=== PATIENT | female | born 1940 | race Caucasian/White ===

== ENCOUNTER → 2016-05-26 | Outpatient (CLI) | payer MEDICARE, BC ==
[~2016-05-26] MED LIST: BENAZEPRIL; CELLCEPT 250MG250 MG; DEMADEX5 MG PO; EVISTA 60MG60 MG/TAB PO; FOLIC ACID 11 MG/TA1 PO; FUROSEMIDE; IBU600 MG PO; LEVOTHYROXIN0.025 MG PO; LEXAPRO 10MG10 MG PO; LIQUIFILM TEARS15 ML OP; METHOTREXATE25 MG/M1 IJ; NORVASC 5MG5 MG/TAB PO; PLAQUENIL; PLAQUENIL 200M200 MG PO; PROAIR HFA0.09 MG/AC IH; ROXICODONE 55 MG/TAB PO; SYNTHROID0.075 MG/T PO; TYLENOL 500MG500 MG PO
== END ==
LOC: COL.PUL 09:43
DX: R06.02 Shortness of breath (principal)

== ENCOUNTER → 2017-04-07 | Outpatient (CLI) | payer MEDICARE, BC | LOC: MC.RAD 13:55 | DX: Z12.31 Encounter for screening mammogram for malignant neoplasm of breast (principal) ==

== ENCOUNTER 2017-04-14 16:15 | Outpatient (RCR) | payer MEDICARE, BC | END 2017-04-16 16:48 | disposition home or self-care (01) | LOC: WSPT 16:15 | DX: G72.9 Myopathy, unspecified (principal); Z88.8 Allergy status to other drugs, medicaments and biological substances; Z91.040 Latex allergy status | CPT/HCPCS: G8978-GP; G8979-GP; G8980-GP ==

== ENCOUNTER → 2017-07-01 | Outpatient (CLI) | payer MEDICARE, BC | LOC: COL.LAB 16:04 | DX: Z01.89 Encounter for other specified special examinations (principal) ==

== ENCOUNTER → 2017-07-04 | Outpatient (CLI) | payer MEDICARE, BC | LOC: COL.LAB 11:07 | DX: R05 Cough (principal) ==

== ENCOUNTER → 2018-05-14 | Outpatient (CLI) | payer MEDICARE, BC | LOC: MC.RAD 05-03 14:40 | DX: Z12.31 Encounter for screening mammogram for malignant neoplasm of breast (principal) ==

== ENCOUNTER → 2018-11-12 | Outpatient (CLI) | payer MEDICARE, BC | LOC: COL.VAS 10:43 | DX: R06.02 Shortness of breath (principal) ==

== ENCOUNTER → 2019-07-01 | Outpatient (CLI) | payer MEDICARE, BC | LOC: MC.RAD 11:15 | DX: Z12.31 Encounter for screening mammogram for malignant neoplasm of breast (principal) ==

== ENCOUNTER → 2020-07-23 | Outpatient (CLI) | payer MEDICARE, BC ==
[~2020-07-23] MED LIST changes: +ANTIVERT 25MG25 MG PO; +ASPIRIN E.C. 8181 MG PO; +BETAPACE 80MG80 MG PO; +CELLCEPT 5500 MG/TAB PO; +CILOXAN .3% EY2.5 ML OP; +LEXAPRO20 MG PO; +LYRICA 50MG CAP50 MG PO; +PEPCID 20MG TAB20 MG PO; +SINGULAIR 110 MG/TAB PO; +SYNTHROID0.088 MG/T PO; +ULTRAM 50MG TAB50 MG PO; +ZOFRAN 4MG T4 MG/TAB PO
== END ==
LOC: MC.RAD 10:15
DX: Z12.31 Encounter for screening mammogram for malignant neoplasm of breast (principal)

== ENCOUNTER 2020-12-25 08:38 | Emergency (ER) | payer MEDICARE, BC ==
[~2020-12-25] VITALS: Ht 172.7 cm; Wt 75.5 kg
[~2020-12-25 08:38] MED LIST changes: -ANTIVERT 25MG25 MG PO; -ASPIRIN E.C. 8181 MG PO; -BETAPACE 80MG80 MG PO; -CELLCEPT 5500 MG/TAB PO; -CILOXAN .3% EY2.5 ML OP; -LEXAPRO20 MG PO; -LYRICA 50MG CAP50 MG PO; -PEPCID 20MG TAB20 MG PO; -SINGULAIR 110 MG/TAB PO; -SYNTHROID0.088 MG/T PO; -ULTRAM 50MG TAB50 MG PO; -ZOFRAN 4MG T4 MG/TAB PO
[2020-12-25 08:41] VITALS: TEMP 101.1
[2020-12-25 09:25] LABS: BASO % 0.3 % (0.0-2.0); EOS # 0.1 (0.0-0.7); EOS % 1.1 % (0-4.0); GRAN # 7.1 (1.4-6.5); GRAN % 76.7 % (42.2-75.2); HEMATOCRIT 38.4 % (37.0-47.0); LYMPH # 1.2 (1.2-3.4); LYMPH % 13.4 % (20.0-51.0); MEAN CELL VOLUME 86 fl (80.0-100.0); MEAN CORPUSCULAR HEMOGLOBIN 27 pg (27.0-31.0); MEAN CORPUSCULAR HGB CONC 31 g/dl (33.0-37.0); MEAN PLATELET VOLUME 10.4 fl (7.4-10.4); MONO # 0.8 (0.1-0.6); MONO % 8.1 % (1.7-9.3); PLATELET COUNT 243 K/mm3 (130-400); RED BLOOD COUNT 4.48 M/mm3 (4.10-5.30); REDCELL DISTRIBUTION WIDTH-CV 14.8 % (11.5-14.5)
[2020-12-25 09:29] LABS: COLLECTION METHOD CATHETER
[2020-12-25 09:31] LABS: ALANINE AMINOTRANSFERASE 16 U/L (4-34); ALBUMIN 3.6 gm/dL (3.5-5.0); ALKALINE PHOSPHATASE 88 U/L (50-136); ANION GAP 8 mmol/L (7-16); AST,SGOT 38 U/L (15-37); BILIRUBIN,TOTAL 0.6 mg/dL (0.0-1.0); BLOOD UREA NITROGEN 12 mg/dL (7-17); CALCIUM 8.8 mg/dL (8.4-10.2); CARBON DIOXIDE 27 mmol/L (22-30); CHLORIDE 104 mmol/L (98-107); CREATININE, serum 0.91 (0.52-1.25); GLUCOSE 104 mg/dL (74-106); POTASSIUM 3.4 mmol/L (3.4-5.0); SODIUM 139 mmol/L (137-145); TOTAL PROTEIN 7.1 gm/dL (6.4-8.2)
[2020-12-25 09:32] LABS: ALCOHOL(ethanol),MEDICAL < 10 mg/dL
[2020-12-25 09:35] LABS: MUCOUS Present /lpf; PH 5 (5-8); SQUAMOUS EPITHELIAL None Seen /hpf; URINE APPEARANCE Hazy; URINE BACTERIA None Seen /hpf; URINE BILIRUBIN Negative (NEGATIVE); URINE BLOOD Negative (NEGATIVE); URINE COLOR Yellow; URINE GLUCOSE Negative (NEGATIVE); URINE KETONE Negative (NEGATIVE); URINE LEUKOCYTE ESTERASE Negative (NEGATIVE); URINE NITRATE Negative (NEGATIVE); URINE PROTEIN(semi-quant) 1+ (NEGATIVE); URINE RBC 0-2 /hpf; URINE UROBILINOGEN Negative (NEGATIVE)
[2020-12-25 09:45] LABS: TRICYCLIC ANTIDEPRESS URINE NEGATIVE
--- NOTE | 2020-12-25 11:53 | NUR ---
general worker met with patient to discuss home health. Patient lives alone and fell during the night. Patient has been treated in the emergency room and will have a friend drive her home today. Worker provided patient with the medicare.[employer] share information sheet and patient chose [facility]. Worker contacted Lexi with Dr Falk's office and arranged for them to [facility]e [facility]. Worker faxed [facility] home health clinical information from patient's emergency room visit. Worker contacted patient's son, Sonu Garcia [phone] and advised of the above information.
[2020-12-25 12:20] VITALS: BP 150/64; PULSE 80
== END 2020-12-25 12:22 | disposition home or self-care (01) ==
LOC: COL.ER 08:38
PROVIDERS: Personal Emergency Response Attendant
DX: S01.81XA Laceration without foreign body of other part of head, initial encounter (principal); I10 Essential (primary) hypertension; E03.9 Hypothyroidism, unspecified; Z79.890 Hormone replacement therapy; Z79.899 Other long term (current) drug therapy; W19.XXXA Unspecified fall, initial encounter; Y92.009 Unspecified place in unspecified non-institutional (private) residence as the place of occurrence of the external cause
CPT/HCPCS: J7030

== ENCOUNTER 2020-12-26 21:58 | Emergency (ER) | payer MEDICARE, BC ==
[~2020-12-26] VITALS: Ht 172.7 cm; Wt 77.3 kg
[2020-12-26 21:58] VITALS: TEMP 98.6
[2020-12-26 22:52] LABS: BASO % 0.3 % (0.0-2.0); EOS # 0.4 (0.0-0.7); EOS % 4.4 % (0-4.0); GRAN # 6.8 (1.4-6.5); GRAN % 71.7 % (42.2-75.2); HEMOGLOBIN 11.7 g/dl (12.5-16.0); LYMPH # 1.6 (1.2-3.4); LYMPH % 16.5 % (20.0-51.0); MEAN CELL VOLUME 88 fl (80.0-100.0); MEAN CORPUSCULAR HEMOGLOBIN 27 pg (27.0-31.0); MEAN CORPUSCULAR HGB CONC 31 g/dl (33.0-37.0); MEAN PLATELET VOLUME 10.6 fl (7.4-10.4); MONO # 0.6 (0.1-0.6); MONO % 6.6 % (1.7-9.3); PLATELET COUNT 274 K/mm3 (130-400); RED BLOOD COUNT 4.31 M/mm3 (4.10-5.30); REDCELL DISTRIBUTION WIDTH-CV 14.7 % (11.5-14.5)
[2020-12-26 23:00] LABS: ALBUMIN 3.5 gm/dL (3.5-5.0); BILIRUBIN,TOTAL 0.4 mg/dL (0.0-1.0); CALCIUM 8.9 mg/dL (8.4-10.2); CREATININE, serum 1.04 (0.52-1.25); POTASSIUM 3.2 mmol/L (3.4-5.0); TOTAL PROTEIN 7.3 gm/dL (6.4-8.2)
[2020-12-26 23:12] LABS: TROPONIN-I 0.027 ng/mL (0.000-0.035)
[2020-12-27 00:20] VITALS: BP 142/73; PULSE 81
== END 2020-12-27 00:20 | disposition home or self-care (01) ==
LOC: COL.ER 21:58
PROVIDERS: Nurse Practitioner Primary Care
DX: S06.0X9A Concussion with loss of consciousness of unspecified duration, initial encounter (principal); S01.01XA Laceration without foreign body of scalp, initial encounter; E87.6 Hypokalemia; W19.XXXA Unspecified fall, initial encounter; Y92.009 Unspecified place in unspecified non-institutional (private) residence as the place of occurrence of the external cause

== ENCOUNTER 2020-12-29 19:29 | Inpatient (IN) | payer MEDICARE, BC ==
[~2020-12-29] VITALS: Ht 172.7 cm; Wt 77.3 kg
[2020-12-29 20:20] LABS: BASO % 0.3 % (0.0-2.0); EOS # 0.3 (0.0-0.7); EOS % 2.6 % (0-4.0); GRAN # 8.2 (1.4-6.5); GRAN % 77.9 % (42.2-75.2); LYMPH # 1.3 (1.2-3.4); LYMPH % 12.5 % (20.0-51.0); MEAN CORPUSCULAR HEMOGLOBIN 27 pg (27.0-31.0); MEAN CORPUSCULAR HGB CONC 33 g/dl (33.0-37.0); MEAN PLATELET VOLUME 10.1 fl (7.4-10.4); MONO # 0.6 (0.1-0.6); PLATELET COUNT 278 K/mm3 (130-400); RED BLOOD COUNT 4.45 M/mm3 (4.10-5.30); REDCELL DISTRIBUTION WIDTH-CV 14.9 % (11.5-14.5)
[2020-12-29 20:23] LABS: HEMATOCRIT 36.8 % (37.0-47.0); MEAN CELL VOLUME 83 fl (80.0-100.0)
[2020-12-29 20:32] LABS: ALBUMIN 3.4 gm/dL (3.5-5.0); BILIRUBIN,TOTAL 0.6 mg/dL (0.0-1.0); CALCIUM 8.5 mg/dL (8.4-10.2); CREATININE, serum 0.75 (0.52-1.25); TOTAL PROTEIN 6.7 gm/dL (6.4-8.2)
[2020-12-29 20:39] LABS: POTASSIUM 2.9 mmol/L (3.4-5.0)
--- NOTE | 2020-12-29 23:28 | NUR ---
Patient just came to the unit, she is alert and oriented x 4, VSS, she feels uncomfortable with her right side, So she prefers to be lying on her left side.
[2020-12-30] VITALS (8 sets, daily range): BP systolic 142–158; BP diastolic 56–105; PULSE 74–97; TEMP 97.6–98.8
--- NOTE | 2020-12-30 07:08 | NUR ---
Patient has been resting intermitently. She has been taken the K supplement. She has been feeling cold all night. Some warm blankets provided. Just right now she started with itching in her arms. Rednees in the inner arms bilaterally present. Shift report given to day nurse.
[2020-12-30 07:40] LABS: BASO % 0.3 % (0.0-2.0); EOS # 0.2 (0.0-0.7); EOS % 2.3 % (0-4.0); GRAN % 77.9 % (42.2-75.2); HEMOGLOBIN 11.5 g/dl (12.5-16.0); LYMPH # 1.3 (1.2-3.4); LYMPH % 13.1 % (20.0-51.0); MEAN CELL VOLUME 83 fl (80.0-100.0); MEAN CORPUSCULAR HEMOGLOBIN 27 pg (27.0-31.0); MEAN CORPUSCULAR HGB CONC 32 g/dl (33.0-37.0); MEAN PLATELET VOLUME 10.9 fl (7.4-10.4); MONO # 0.6 (0.1-0.6); MONO % 5.9 % (1.7-9.3); PLATELET COUNT 263 K/mm3 (130-400); RED BLOOD COUNT 4.27 M/mm3 (4.10-5.30); REDCELL DISTRIBUTION WIDTH-CV 15.1 % (11.5-14.5)
[2020-12-30 07:41] LABS: HEMATOCRIT 35.6 % (37.0-47.0)
[2020-12-30 07:47] LABS: CALCIUM 8.3 mg/dL (8.4-10.2); CREATININE, serum 0.73 (0.52-1.25); POTASSIUM 3.6 mmol/L (3.4-5.0)
[2020-12-30 09:47] LABS: COLLECTION METHOD CLEAN CATCH
[2020-12-30 10:00] LABS: MUCOUS Present /lpf; PH 6 (5-8); SQUAMOUS EPITHELIAL 0-2 /hpf; URINE APPEARANCE Clear; URINE BACTERIA None Seen /hpf; URINE BILIRUBIN Negative (NEGATIVE); URINE BLOOD 1+ (NEGATIVE); URINE COLOR Yellow; URINE GLUCOSE Negative (NEGATIVE); URINE KETONE Negative (NEGATIVE); URINE LEUKOCYTE ESTERASE 1+ (NEGATIVE); URINE NITRATE Negative (NEGATIVE); URINE PROTEIN(semi-quant) Negative (NEGATIVE); URINE RBC 0-2 /hpf; URINE UROBILINOGEN Negative (NEGATIVE)
--- NOTE | 2020-12-30 10:01 | NUR ---
SHIFT ASSESSMENT PREFORMED. SCHEDULED MEDICATION GIVEN. IV FLUIDS DC'D. BILATERAL UPPER ARM REDNESS NOTED. PATIENT DENIES ANY PAIN, DISCOMFORT, SOA, OR FURTHER NEEDS AT THIS TIME. CALL LIGHT IN REACH. FALL PRECAUTIONS IN PLACE.
--- NOTE | 2020-12-30 10:09 | NUR ---
PATIENT A&O X4
[2020-12-30] MEDS ORDERED: LYRICA 50MG CAP50 MG PO (11:29)
[2020-12-30] MEDS ORDERED: PEPCID 20MG TAB20 MG PO (11:30)
[2020-12-30] MEDS ORDERED: ANTIVERT 25MG25 MG PO (11:30)
[2020-12-30] MEDS ORDERED: SYNTHROID0.088 MG/T PO (11:30)
[2020-12-30] MEDS ORDERED: ULTRAM 50MG TAB50 MG PO (11:30)
[2020-12-30] MEDS ORDERED: SINGULAIR 110 MG/TAB PO (11:31)
[2020-12-30] MEDS ORDERED: ZOFRAN 4MG T4 MG/TAB PO (11:31)
[2020-12-30] MEDS ORDERED: LEXAPRO20 MG PO (11:31)
[2020-12-30] MEDS ORDERED: CELLCEPT 5500 MG/TAB PO ×2 (11:32)
--- NOTE | 2020-12-30 13:42 | NUR ---
Plan Patient reports that she would like to go home but is open to the suggestion of what the doctoróscar jin is best. Patient has [facility] Home health that is to start on Thursday Morning. Patient reports that she is open to IPR but does not know how she fell. Patient reports that she has a walker but does not use it often. Patient reports that her PCP is Dr. Falk and seend recently. Patient reports that she has a Son Bolivar out in [place] who is an city attorney but does not have any POA PPW. Patient reports that she obtains medications from [facility] without any concerns. Patient does not appear to be totally convinced on her statues of care. Educated patient on safety at home and services offered to her through case management. We will follow for the safest DC plan.
--- NOTE | 2020-12-30 17:39 | NUR ---
PATIENT HAS HAD AN OK. VSS. PATIENT DENIES ANY PAIN, DISCOMFORT, SOA, OR FURTHER NEEDS AT THIS TIME. CALL LIGHT IN REACH. FALL PRECAUTIONS IN PLACE.
--- NOTE | 2020-12-30 21:11 | NUR ---
Shift assessment completed. Patient A/Ox3. Patient denies any pain or discomfort. Denies SOB, N/V, headache, or dizziness. Patient reports feeling very cold here. Warm blanket provided. Non-productive dry cough noted. Assisted patient to the bathroom to void. Patient ambulates with a walker. 1 person assist needed for transfer and ambulation. Right AC IV site C/D/I. Scheduled meds given per MAR. Call light in reach. Bed alarms on. Fall precuations maintained.
[2020-12-31] VITALS (7 sets, daily range): BP systolic 129–148; BP diastolic 58–95; PULSE 68–123; TEMP 97.6–97.9
--- NOTE | 2020-12-31 04:14 | NUR ---
At shift assessment around 8pm, noticed a few scattered rashes in upper inner thigh area. When this nurse assist patient to the bathroom around 10pm, noticed rashes all over her upper and lower extremities. Patient denies SOB or difficulty breathing but states feeling itchy. Called VIRAJ Epstein and updated. PRN Benadryl, Pepcid, and Solumedrol given per JUN. After 1 hour, rashes clear out. Call light in reach. Will continue to monitor.
--- NOTE | 2020-12-31 07:52 | NUR ---
RECIEVED CALL FROM TELE PT TACHY IN 140'S. PT SLEEPING IN BED, VITALS OBTAINED, HR SOUNDED IRREGULAR UPON AUSCULTATION, ASSESSMENT PERFORMED, EKG ORDERED.
--- NOTE | 2020-12-31 08:30 | NUR ---
PT PLEASANT, AOX4, DENIES PAIN/SOB/CHEST PALPITATIONS. PT DROWSY, HR WOULD JUMPT TO 180'S WITH ACTIVITY AND COME BACK DOWN. ASSESSMENT PERFORMED, MEDICATIONS GIVEN, CARDIOLOGY CONSULTED.
--- NOTE | 2020-12-31 13:12 | NUR ---
Sw met with the pt to talk about placement or HH. The pt informed me that she would like to wait until she speaks the doctor due to the fact they just found a AFIB and she is not sure what to do at this moment. Sw to await for further recommendations at this time. ML would like a therapy note faxed to them. Sw to await. D/c: [facility], HH or IPR or HOME
--- NOTE | 2020-12-31 17:43 | NUR ---
UPDATED PT SON ON PT CONDITION. LEFT PHONE NUMBER AND WOULD LIKE UPDATES, PT SON IS HECTOR HANNA AND #[phone]
--- NOTE | 2020-12-31 22:19 | NUR ---
Patient assessed around 2005. Alert and oriented, and able to make needs known. Denies having pain and discomfort. Peripheral IV to right AC with Amiodarone drip running per orders. Denies SOB and dyspnea. LS CTA in upper lobes, diminished in lower. Respirations even and unlabored. HRI. Telemetry in place: A-fib in the 80s at this time. Capillary refill less than 3 seconds. Non-tenting skin turgor. BSAx4. Abdomen soft and non-tender. No edema. Voices no questions, needs, or concerns at this time. Resting in bed with call light within reach. Son Bolivar called for update on patient. Updated that patient continues to be on Amiodarone drip, and is still in A-fib, but rate controlled at this time. Updated that we are keeping patient NPO after midnight in case she does not go back into a normal sinus rhythm and will discuss possible cardioversion for tomorrow.
[2021-01-01 03:19] VITALS: BP 119/61; PULSE 87; TEMP 97.7
[2021-01-01 06:53] LABS: CALCIUM 9.1 mg/dL (8.4-10.2); CREATININE, serum 0.89 (0.52-1.25); MAGNESIUM 2.5 mg/dL (1.6-2.3); POTASSIUM 3.7 mmol/L (3.4-5.0)
--- NOTE | 2021-01-01 07:20 | NUR ---
REPORT RECEIVED FROM BINTA ROMERO. PT ASLEEP IN BED. BREATHING REGULAR/UNLABORED. CALL BUTTERFIELD IN REACH.
[2021-01-01 08:45] VITALS: BP 153/93; PULSE 117; TEMP 98.7
--- NOTE | 2021-01-01 09:03 | NUR ---
PT C/O "I FEEL WEAK ALL OVER". ALSO C/O RASH ON L SIDE OF BODY, RED RASH NOTED, NO HIVES OR OPEN AREAS VISUALIZED. PT C/O LIPS NUMBNESS AND TINGLING. NEURO TAKEN, R SYRUP MAKER SLIGHTLY WEAKER THAN L. 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 SCOTTY NOTIFIED, NO NEW ORDERS.
--- NOTE | 2021-01-01 11:21 | NUR ---
PT ALERT/ORIENTED X2 (PERSON, PLACE)
--- NOTE | 2021-01-01 11:37 | NUR ---
TELEMETRY CALLED NOTIFYING PT IN SINUS JACLYN. SCOTTY CALI NOTIFIED BUT WILL DEFER TO CARDIOLOGY. STEPHANIE BENITO.
[2021-01-01 12:07] VITALS: BP 130/65; PULSE 73; TEMP 98.3
--- NOTE | 2021-01-01 13:32 | NUR ---
Initial visit; Patient thanked Photo Editor for looking in on her, offering empathy and prayer and God's blessings. Photo Editor will continue to look in on Maddie while she is at [facility].
--- NOTE | 2021-01-01 15:58 | NUR ---
Pt complaining of R eye pain. After previous tylenol administration, pain decreased from 10/10 to 6/10. Cold compress applied per pt request. Pt resting in bed
[2021-01-01 16:04] VITALS: BP 105/64; PULSE 52; TEMP 97.9
--- NOTE | 2021-01-01 16:26 | NUR ---
Dr. Gatito juarez and Briana JUDD notified of elevated QTC after first dose of sotalol.
--- NOTE | 2021-01-01 16:35 | NUR ---
REMOVED BAND FROM R RADIAL SITE, CLEANED OFF DRIED BLOOD, APPLIED BANDAID, ENOURAGED PT NOT TO PUT PRESSURE ON WRIST. PT VERBALIZED UNDERSTAND.
--- NOTE | 2021-01-01 17:56 | NUR ---
PT BROKE OUT IN RASH/ITCHING THIS MORNING. BENEDRYL ADMINISTERED. PT ALSO HAD SEVERE EYE PAIN AFTER ADMINISTRATION OF EYE DROPS. TYLENOL WAS ADMINISTERED AND HELPED DECREASE THE PAIN, ALONG WITH COLD COMPRESSES. PT OTHERWISE HAD UNEVENTFUL DAY. PT COMPLAINED OF ITCHING STARTING AGAIN THIS EVENING. BENADRYL ADMINISTERED. PT RESTING IN BED. CALL BUTTERFIELD IN REACH. PT DENIES ANY OTHER NEEDS AT THIS TIME.
--- NOTE | 2021-01-01 19:07 | NUR ---
tammy relayed information from dr. quinteros saying pt can have sotalol if qtc under 600. she was unable to change provider instruction in medications and unable to reach pharmacy.
[2021-01-01 19:34] VITALS: BP 107/57; PULSE 55; TEMP 98
--- NOTE | 2021-01-01 21:18 | NUR ---
VIRAJ MCCOY NOTIFIED OF ELEVATED QTcAND LOW HEART RATE, INSTRUCTED TO WAIT TO GIVE SOTALOL UNTIL REPEAT EKG PERFORMED.
--- NOTE | 2021-01-01 22:08 | NUR ---
PT COMPLAINS OF INCREASED ITCHING AND RASH FORMATION. PT HAS RED RASH SPREADING OVER BILATERAL ARMS, RADIATING TO BACK. HIVES NOTED ON RIGHT LOWER LEG OVER KNEE AND APONTE. CHARGE NURSE NOTIFIED TO ASSESS. VIRAJ MCCOY NOTIFIED, HYDROCORTISONE CREAM ORDERED.
--- NOTE | 2021-01-01 22:24 | NUR ---
PT ALERT AND ORIENTED, PT SLIGHTLY CONFUSED ON TIME, BUT ABLE TO ANSWER MONTH CORRECTLY. PT EXPRESSES INCREASED RASH SPREADING TO BACK AND UPPER ARMS. HIVES NOTED OVER RIGHT KNEE AND APONTE. PT STITCHES OVER RIGHT EYE WELL APPROXIMATED NO SIGNS OR SYMPTOMS OF INFECTION NOTED AT THIS TIME. PT HAS BRUISE OVER RIGHT EYE. PT IV PULLED OUT IN LEFT AC, RESTARTED IN RIGHT FOREARM. PT QTc ELEVATED, NOTIFIED VIRAJ MCCOY. REPEAT EKG, QTc ELEVATED STILL, NADINE TO CALL CARDIOLOGY TO CONFIRM GIVING SOTALOL. PT DENIES PAIN, NO OTHER NEEDS AT THIS TIME.
--- NOTE | 2021-01-01 22:40 | NUR ---
VIRAJ MCCOY CALLED CARDIOLOGY, DR. COOL. INSTRUCTED TO GIVE SOTALOL.
[2021-01-02] VITALS (8 sets, daily range): BP systolic 106–144; BP diastolic 45–55; PULSE 50–59; TEMP 97.8–99.1
--- NOTE | 2021-01-02 07:11 | NUR ---
REPORT RECEIVED FROM BINTA JONES. PT AWAKE IN BED, RESTING. DENIES ANY PAIN. HAS NO OTHER REQUESTS AT THIS TIME. CALL BUTTERFIELD IN REACH.
--- NOTE | 2021-01-02 07:23 | NUR ---
AT 0440, PT CONTINUED TO COMPLAIN OF ITCHING. PT REQUESTING BENADRYL. GIVEN PER ORDERS. MEDITECH WAS DOWN, WRITTEN IN PAPER CHART. PT FREE FROM INJURY THIS SHIFT. PT ABLE TO CONVERSE FREELY AND EXPRESS NEEDS. PT VS STABLE THIS SHIFT.
[2021-01-02 07:28] LABS: BASO % 0.1 % (0.0-2.0); EOS # 0.2 (0.0-0.7); EOS % 2.1 % (0-4.0); GRAN # 6.8 (1.4-6.5); GRAN % 73.3 % (42.2-75.2); HEMATOCRIT 37.1 % (37.0-47.0); LYMPH # 1.8 (1.2-3.4); LYMPH % 19.1 % (20.0-51.0); MEAN CELL VOLUME 84 fl (80.0-100.0); MEAN CORPUSCULAR HEMOGLOBIN 27 pg (27.0-31.0); MEAN CORPUSCULAR HGB CONC 32 g/dl (33.0-37.0); MEAN PLATELET VOLUME 10.6 fl (7.4-10.4); MONO # 0.5 (0.1-0.6); PLATELET COUNT 345 K/mm3 (130-400); RED BLOOD COUNT 4.43 M/mm3 (4.10-5.30); REDCELL DISTRIBUTION WIDTH-CV 15.4 % (11.5-14.5)
[2021-01-02 07:37] LABS: ALBUMIN 3.1 gm/dL (3.5-5.0); BILIRUBIN,TOTAL 0.4 mg/dL (0.0-1.0); CALCIUM 8.6 mg/dL (8.4-10.2); CREATININE, serum 0.99 (0.52-1.25); MAGNESIUM 2.3 mg/dL (1.6-2.3); POTASSIUM 4.3 mmol/L (3.4-5.0); TOTAL PROTEIN 6.2 gm/dL (6.4-8.2)
--- NOTE | 2021-01-02 09:08 | NUR ---
PT HAD IMPLANTED LOOP RECORDER DONE AT 8:30AM. INCISION COVERED WITH STERI-STRIPS. PT DOING WELL. SITE COVERED W/GUAZE AND TAPE. CLEAN,DRY,INTACT. PT HAS NO NEEDS AT THIS TIME.
--- NOTE | 2021-01-02 15:16 | NUR ---
BARRERA met with the patient to review d/c plan and discuss therapy's recommendation for home vs post-acute rehab. The patient reports that she would be interested in SNF upon discharge and would prefer [facility]. BARRERA contacted and faxed updates to Lance at [facility]. BARRERA attempted to contact the patient's son, Bolivar, to update. BARRERA left him a voicemail.
--- NOTE | 2021-01-02 18:25 | NUR ---
PT HAD IMPLANTED LOOP RECORDER PLACED TODAY. CLEAN, DRY, INTACT. OTHER THAN THAT, PT HAD UNEVENTFUL DAY. SLEPT ON AND OFF MOST OF THE DAY. PT IS SITTING ON SIDE OF BED EATING DINNER. PT HAS NO OTHER NEEDS AT THIS TIME. CALL BUTTERFIELD IN REACH.
--- NOTE | 2021-01-02 20:54 | NUR ---
ALERT AND OX3. DENIES SOA, CHEST PAIN SOME DIZZY WHEN SETTING UP QUICKLY, AMB TO BR W WALKER W NO PROBLEMS. LARGE BM. DSG TO CHEST-LOOP RECORDER - C/D/I. IV RT FA FLUSHED. PM MEDS GIVEN. POC DISCUSSED. STITCHES TO RT BROW/FA INTACT. POC DISCUSSED. CALL LIGHT WI REACH. BED IN LOW POSITION. WARM BLANKET PROVIDED.
[2021-01-03 04:34] VITALS: BP 147/42; PULSE 52; TEMP 97.9
--- NOTE | 2021-01-03 05:04 | NUR ---
RESTED THROUGH THE NIGHT WITHOUT INCIDENT. NEEDS MET.
[2021-01-03 07:11] LABS: BASO % 0.1 % (0.0-2.0); EOS # 0.3 (0.0-0.7); EOS % 3.9 % (0-4.0); GRAN # 5.6 (1.4-6.5); HEMOGLOBIN 11.5 g/dl (12.5-16.0); LYMPH # 1.7 (1.2-3.4); LYMPH % 20.7 % (20.0-51.0); MEAN CELL VOLUME 85 fl (80.0-100.0); MEAN CORPUSCULAR HEMOGLOBIN 27 pg (27.0-31.0); MEAN CORPUSCULAR HGB CONC 32 g/dl (33.0-37.0); MEAN PLATELET VOLUME 10.4 fl (7.4-10.4); MONO # 0.6 (0.1-0.6); MONO % 6.7 % (1.7-9.3); PLATELET COUNT 307 K/mm3 (130-400); RED BLOOD COUNT 4.29 M/mm3 (4.10-5.30); REDCELL DISTRIBUTION WIDTH-CV 15.6 % (11.5-14.5)
--- NOTE | 2021-01-03 07:11 | NUR ---
REPORT RECIEVED FROM BINTA WHELAN. PT ASLEEP IN BED. BREATHING REGULAR/UNLABORED. CALL [place]TERFIELD IN REACH
[2021-01-03 07:12] LABS: HEMATOCRIT 36.3 % (37.0-47.0)
[2021-01-03 07:22] LABS: CALCIUM 8.2 mg/dL (8.4-10.2); CREATININE, serum 1.09 (0.52-1.25)
[2021-01-03 07:36] VITALS: BP 145/47; PULSE 50; TEMP 98
[2021-01-03] MEDS ORDERED: BETAPACE 80MG80 MG PO (08:17)
[2021-01-03] MEDS ORDERED: ASPIRIN E.C. 8181 MG PO (08:17)
[2021-01-03] MEDS ORDERED: CILOXAN .3% EY2.5 ML OP (08:20)
[2021-01-03 12:55] VITALS: BP 136/48; PULSE 53; TEMP 98.3
--- NOTE | 2021-01-03 13:04 | NUR ---
Lance, at [facility], reports that they are able to accept the patient. SW updated the clinical team, the patient, and her son (Bolivar) via phone. They were all in agreement to the plan. The patient is to discharge today, 01/03, to [facility] for a skilled stay. Transportation was scheduled at 1430, via [facility]. BARRERA informed the patient, her RN, and her son of the time. They were all in agreement to the time. BARRERA presented and read the IM form outloud to the patient. The patient verbalized understanding and gave SW approval to sign the form on her behalf. No additional needs at this time.
[2021-01-03 13:40] VITALS: BP 136/48; PULSE 53; TEMP 98.3
--- NOTE | 2021-01-03 15:10 | NUR ---
PT DISCHARGED. IV AND TELE REMOVED. ESCORTED BY BINTA BAI AND GAMA CAGLE.
== END 2021-01-03 15:05 | disposition home or self-care (01) | DRG 260 ==
LOC: COL.ER 19:29 → MEDICAL 21:08
PROVIDERS: Internal Medicine; Nurse Practitioner; Physician Assistant; Student in an Organized Health Care Education/Training Program; ADMIT Student in an Organized Health Care Education/Training Program
PROC: 0JH632Z Insertion of Monitoring Device into Chest Subcutaneous Tissue and Fascia, Percutaneous Approach (ICD-10-PCS; principal; 2021-01-02)
DX: I48.0 Paroxysmal atrial fibrillation (principal); G92 Toxic encephalopathy; S06.0X9A Concussion with loss of consciousness of unspecified duration, initial encounter; H10.89 Other conjunctivitis; M79.3 Panniculitis, unspecified; E03.9 Hypothyroidism, unspecified; M06.9 Rheumatoid arthritis, unspecified; J98.4 Other disorders of lung; E87.6 Hypokalemia; E86.0 Dehydration; G72.9 Myopathy, unspecified; Z20.822 Contact with and (suspected) exposure to COVID-19; L27.0 Generalized skin eruption due to drugs and medicaments taken internally; T46.2X5A Adverse effect of other antidysrhythmic drugs, initial encounter; S01.01XA Laceration without foreign body of scalp, initial encounter; W19.XXXA Unspecified fall, initial encounter; Y92.009 Unspecified place in unspecified non-institutional (private) residence as the place of occurrence of the external cause
CPT/HCPCS: 99232-AI; 99233-AI; C1764; G0378; J0282; J1200; J1650; J2930; J3480; J7060; J7517

== ENCOUNTER → 2021-03-13 | Outpatient (CLI) | payer MEDICARE, BC ==
[~2021-03-13] MED LIST changes: +ANTIVERT 25MG25 MG PO; +ASPIRIN E.C. 8181 MG PO; +BETAPACE 80MG80 MG PO; +CELLCEPT 5500 MG/TAB PO; +CILOXAN .3% EY2.5 ML OP; +LEXAPRO20 MG PO; +LYRICA 50MG CAP50 MG PO; +PEPCID 20MG TAB20 MG PO; +SINGULAIR 110 MG/TAB PO; +SYNTHROID0.088 MG/T PO; +ULTRAM 50MG TAB50 MG PO; +ZOFRAN 4MG T4 MG/TAB PO
== END ==
LOC: COL.RAD 14:27
DX: G31.9 Degenerative disease of nervous system, unspecified (principal); J34.9 Unspecified disorder of nose and nasal sinuses; G20 Parkinson's disease

== ENCOUNTER → 2023-07-16 | Outpatient (CLI) | payer MEDICARE, BC ==
[~2023-07-16] MED LIST changes: +B-12 500 MCG PO; +BETAPACE 120MG120 MG PO; +BETAPACE160 MG PO; +CEPHALEXIN500 M1 PO; +PRESERVISION1 SGL PO; +VITAMIN D 400400 IU PO
== END ==
LOC: MC.RAD 15:26
DX: Z12.31 Encounter for screening mammogram for malignant neoplasm of breast (principal)